=== PATIENT | female | born 1975 | race Two or more races ===

== ENCOUNTER 2016-08-12 02:20 | Emergency (ER) | payer SELFPAY ==
[2016-08-12 02:32] VITALS: BP 146/99; BMI 28.1
[2016-08-12] MEDS ORDERED: ROCEPHIN VIAL 1 GM IM ONE (04:19)
[2016-08-12] MEDS ORDERED: BENADRYL CAP 50 MG PO ONE (04:20)
[2016-08-12] MEDS ORDERED: SOLU-MEDROL 125 MG VIAL IM ONE (04:20)
[2016-08-12] MEDS ORDERED: AYR NASAL DROPS ONE (04:21)
--- NOTE | 2016-08-12 04:23 | DR.GENAD ---
HPI - PCP Primary Care Physician: NFD - Complaint/Symptoms Chief Complaint Doctors Comments: Patient states she has been congested for the past two days but denies fever, chills, SOB, nausea or vomiting. She has nasal congestion and non productive cough. States she does not have a local doctor. She has been taking Contact from [facility] without improvement. States she has her tubes tied. years ago. She denies nausea or vomiting or wheezing. Chief Complaint:: CONGESTION - Nurses notes reviewed Nurses Notes Review: Yes - Source History Provided: Patient - Mode of Arrival Mode of Arrival: Ambulatory - Timing Onset of Chief Complaint: 08/12/16 Came on: Gradually - Duration Duration: Constant How lon Duration: Days - Location Location: nasal congestion - Severity Severity: Moderate - Modifying Factors Worsens:: nothing Improves:: nothing PMH - PMH Past Medical History: No Past Surgical History: No Surgical History: - Family History History of Family Medical Conditions: Yes Family Medical History: Diabetes Mellitus - Social History Does patient currently use any type of tobacco product: No Have you used tobacco products in the last 12 months: No Type of Tobacco Use: None Does any household member use tobacco: No Alcohol Use: None Do you use any recreational Drugs:: No Lives With: Family Lives Where: Home - infectious screening In the last 2 months have you had wt loss of >10#?: NO Have you had fever, night sweats or hemotysis?: No Have you traveled outside the country in the last 6 months?: No Isolation: Standard ROS - Review of Systems Constitutional: No Symptoms Reported. negative: See HPI, Chills, Diaphoresis, Fever, Malaise, Weakness, Irritable, Fatigue, Loss of Appetite, Other Eyes: No Symptoms Reported. negative: See HPI, Eye Pain, Blurred Vision, Tearing, Discharge, Photophobia, Diplopia, Other ENTM: Nose Discharge, Nose Congestion, Throat Pain. negative: No Symptoms Reported, See HPI, Ear Pain, Ear Discharge, Pulling on Ears, Hearing Loss, Nose Pain, Epistaxis, Mouth Pain, Mouth Swelling, Loose Teeth, Drooling, Throat Swelling, Ear Foreign Body Respiratoy: No Symptoms Reported, Non-Productive Cough. negative: See HPI, Productive Cough, Moist Cough, Dry Cough, Hacking Cough, Barking Cough, Brassy Cough, Orthopnea, Short of Breath, Stridor, Wheezing, Hemoptysis, Other Cardiovascular: No Symptoms Reported. negative: See HPI, Chest Pain, Edema, Palpitations, Syncope, Cyanosis, Skin Mottling, Other Gastrointestinal/Abdominal: No Symptoms Reported. negative: See HPI, Abdominal Pain, Constipation, Diarrhea, Nausea, Vomiting, Food Intolerance, Other Genitourinary: No Symptoms Reported Neurological: No Symptoms Reported. negative: See HPI, Anxiety, Depressed, Emotional Problems, Headache, Numbness, Paresthesia, Pre-existing Deficit, Seizure, Tingling, Tremors, Weakness, Dizziness, Problems Walking, Speech Problem, Other Musculoskeletal: No Symptoms Reported Integumentary: No Symptoms Reported. negative: See HPI, Change in Color, Change in Hair/Nails, Dryness, Lesions, Lumps, Rash, Itching, Wound, Bruises, Juandice, Other Hematologic/Lymphatic: No Symptoms Reported. negative: See HPI, Anemia, Blood Clots, Easy Bleeding, Easy Bruising, Swollen Glands, Lymphadenopathy, Other Endocrine: No Symptoms Reported Psychiatric: No Symptoms Reported PE - Vital Signs Vitals: Temperature 97.7 F Pulse Rate 73 Respiratory Rate 20 Blood Pressure 146/99 O2 Sat by Pulse Oximetry 100 - General Limitations: No Limitations General Appearance: Alert, In Distress (slight) - Head Head Exam: Normal Inspection, Atraumatic, Normocephalic - Eyes Eye exam: Normal Appearance, PERRL, EOMI. negative: Scleral Icterus, Conjunctival Injection, Nystagmus, Miosis, Mydrasis, Periorbital Swelling, Periorbital Tenderness, Other - ENT ENT Exam: Normal Exam, Normal Oropharynx, Normal External Ear Exam, Mucous Membranes Moist, TM's Normal Bilaterally External Ear Exam: Normal External Inspection TM/Canal Exam: Bilateral Normal (tympanic perforated bilaterally) Nose Exam: Normal Nose Exam, Sinus Tenderness. negative: Nasal Deviation ( nasal congestion with severe edema left nostril) Mouth Exam: Normal Inspection Throat Exam: Normal Inspection. negative: Tonsillar Erythema, Tonsillomegaly, Tonsillar Exudate, R Peritonsillar Mass, L Peritonsillar Mass, Muffled Voice, Other - Neck Neck Exam: Normal Inspection, Full ROM, Trachea Midline - Chest Chest Inspection: Normal Inspection, Symmetric Chest Wall Rise - Respiratory Respiratory Exam: Normal Lung Sounds Bilat Respiratory Exam: Bilateral Clear to Auscultation - Cardiovascular Cardiovascular Exam: Regular Rate, Normal Rhythm, Normal Heart Sounds - Abdominal Exam Abdominal Exam: Normal Inspection, Normal Bowel Sounds, Soft. negative: Distention, Tenderness, Guarding, Rebound, Rigidity, Dimnished Bowel Sounds, Hyperactive Bowel Sounds, Hypoactive Bowel Sounds, Organomegaly, Trauma, Incision, Ascites, Mass, Bruit, Pulsatile Mass, Hernia, Other Abdominal Tenderness: negative: RUQ, RLQ, LUQ, LLQ, Epigastrium, Suprapubic, Diffuse, Mild, Moderate, Severe, Other - Extremities Extremities Exam: Normal Inspection, Full ROM, Normal Capillary Refill. negative: Tenderness, Edema, Joint Swelling, Calf Tenderness, Other - Back Back Exam: Normal Inspection, Full ROM. negative: Tenderness, (R) CVA Tenderness, (L) CVA Tenderness, Muscle Spasm, Paraspinal Tenderness, Vertebral Tenderness, Rashes, (R) Sciatic Notch Tenderness, (L) Sciatic Notch Tendern, (R ) Straight Leg Raise, (L) Straight Leg Raise, Other - Neurologic Neurological Exam: Alert, Oriented X3, CN II-XII Intact, Normal Gait, Reflexes Normal - Psychiatric Psychiatric Exam: Normal Affect, Normal Mood. negative: Depressed, Agitated, Anxious, Flat Affect, Manic, Homicidal Ideation, Suicidal Ideation, Other - Skin Skin Exam: Warm, Dry, Intact, Normal Color - Diagnosis Discharge Problem: Essential hypertension Bronchitis, acute Qualifiers: Bronchitis organism: other organism Qualified Code(s): J20.8 - Acute bronchitis due to other specified organisms Sinusitis, acute Qualifiers: Sinusitis location: maxillary - Discharge Plan Disposition: 01 HOME, SELF-CARE Condition: Stable Prescriptions: Cetirizine HCl [Zyrtec Tab 10 mg] 10 mg PO DAILY #30 tab Fluticasone Nasal [place] [FLONASE NASAL SPRAY *] 2 sprays ENOSTRIL DAILY #1 each Levofloxacin [LEVAQUIN TAB 500 MG *] 500 mg PO Q24H #10 tab Prednisone [PREDNISONE TAB 20 MG *] 20 mg PO QAM #3 tab - Follow ups/Referrals Follow ups/Referrals: NFD,None [Primary Care Provider] - 3 days DEBBIE GRANDE [STAFF PHYSICIAN] - 3 days - Instructions Instructions: Sinusitis, Adult, Acute Bronchitis, Hypertension
[2016-08-12] MEDS ORDERED: SOLU-MEDROL 125 MG VIAL ONE (04:35)
[2016-08-12] MEDS ORDERED: BENADRYL CAP/TAB 25 MG PO ONE ×2 (04:35→04:39)
[2016-08-12] MEDS ORDERED: ROCEPHIN VIAL 1 GM ONE (04:36)
== END 2016-08-12 04:53 | disposition home or self-care (01) ==
LOC: ER 02:20
DX: J20.8 Acute bronchitis due to other specified organisms (principal); J01.80 Other acute sinusitis; I10 Essential (primary) hypertension
CPT/HCPCS: 96372; 99283; J0696; J2930